=== PATIENT | female | born 1945 | race Caucasian/White ===

== ENCOUNTER 2018-08-04 16:46 | Emergency (ER) | payer MEDICARE, MEDICAID ==
[2018-08-04 16:47] VITALS: BMI 24.4
--- NOTE | 2018-08-04 18:38 | ED PDOC ---
HPI: Abdomen Time Seen by Provider: 08/04/18 17:43 Chief Complaint (Nursing): Abdominal Pain Chief Complaint (Provider): Abdominal Pain History Per: Family (sister and granddaughter) History/Exam Limitations: language barrier (deaf and mute as baseline. nonverbal. does not use sign language) Onset/Duration Of Symptoms: Days (x2) Current Symptoms Are (Timing): Still Present Additional Complaint(s): 73 year old female, deaf and mute at with pmHx of colitis, gallstones, diverticulitis, and arthritis, arrives to ED with her sister and granddaughter for an evaluation of abdominal pain associated with distention and constipation for 2 days. No reports of vomiting, abdominal surgery, urinary complaints, or change in appetite. Patient's sister notes that patient had minimal bowel movement earlier today and recently treated for UTI 2 weeks ago. PCP: Dr. Jeremiah Calhoun Past Medical History Reviewed: Historical Data, Nursing Documentation, Vital Signs Vital Signs: Last Vital Signs Temp 98.7 F 08/04/18 16:48 Pulse 100 H 08/04/18 16:48 Resp 16 08/04/18 16:48 BP 182/89 H 08/04/18 16:48 Pulse Ox 98 08/04/18 16:48 - Medical History PMH: Arthritis, Diverticulitis, HTN, Hyperlipidemia, Kidney Stones, Seizures (LAST SEIZED 1994 NOT ON MEDS SINCE) Denies: Chronic Kidney Disease - Surgical History Surgical History: No Surg Hx - Family History Family History: States: Unknown Family Hx - Home Medications Home Medications: Ambulatory Orders Medication Instructions Recorded Calcium [Calcium 500] 500 mg PO DAILY 01/06/15 Cyanocobalamin [Vitamin B12] 100 mcg PO DAILY 01/06/15 Ergocalciferol (Vitamin D2) 50,000 iu PO QWK 01/06/15 [Vitamin D] Fenofibrate Nanocrystallized 48 mg PO DAILY 01/06/15 [Fenofibrate] Simvastatin 20 mg PO DAILY 01/06/15 Polyethylene Glycol 3350 [Miralax] 17 gm PO DAILY PRN #5 packet 08/04/18 - Allergies Allergies/Adverse Reactions: Allergies Allergy/AdvReac Type Severity Reaction Status Date / Time Penicillins Allergy RASH Verified 08/04/18 16:48 Review of Systems ROS Statement: Except As Marked, All Systems Reviewed And Found Negative Gastrointestinal: Positive for: Abdominal Pain (with distention), Constipation. Negative for: Vomiting, Other (decreased appetite) Genitourinary Female: Negative for: Dysuria, Frequency, Incontinence, Hematuria Physical Exam - Reviewed Nursing Documentation Reviewed: Yes Vital Signs Reviewed: Yes - Physical Exam Appears: Positive for: No Acute Distress Head Exam: Positive for: ATRAUMATIC, NORMAL INSPECTION, NORMOCEPHALIC Skin: Positive for: Normal Color Eye Exam: Positive for: Normal appearance, EOMI, PERRL ENT: Positive for: Normal ENT Inspection. Negative for: Pharyngeal Erythema Neck: Positive for: Normal, Supple Cardiovascular/Chest: Positive for: Regular Rate, Rhythm, Chest Non Tender Respiratory: Positive for: Normal Breath Sounds. Negative for: Respiratory Distress Gastrointestinal/Abdominal: Positive for: Soft, Tenderness (LLQ; epigastric), Distended Back: Positive for: Normal Inspection. Negative for: L CVA Tenderness, R CVA Tenderness Extremity: Positive for: Normal ROM (upper/lower) Neurologic/Psych: Positive for: Alert, Oriented, Other (nonverbal as baseline). Negative for: Motor/Sensory Deficits - Laboratory Results Result Diagrams: 08/04/18 18:30 08/04/18 18:30 - ECG O2 Sat by Pulse Oximetry: 98 (RA) Pulse Ox Interpretation: Normal - Progress Re-evaluation Time: 23:38 Condition: Re-examined, Improved Medical Decision Making Medical Decision Making: Initial Impression: Abdominal pain; constipation Differential diagnosis: aortic dissection R/O SBO or gallbladder disease or acute cholecystitis Initial Plan: * CT ABD/pelvis * Labs Time: 2255 --CT ABD/pelvis FINDINGS: LUNG BASES: The heart is mildly enlarged as visualized. Lung bases appear clear. LIVER: Mild diffuse fatty infiltration of liver. GALLBLADDER AND BILE DUCTS: The gallbladder appears within normal limits. No radioopaque gallstones are seen. No biliary ductal dilatation is evident. PANCREAS: Unremarkable. SPLEEN: Unremarkable. ADRENAL GLANDS: Unremarkable. KIDNEYS, URETERS, AND BLADDER: The bladder is moderately distended. Kidneys appear unremarkable. No hydroureter. STOMACH AND BOWEL: There is fecal impaction at the rectum, measuring 6.7 x 7.5 cm at series 2, image 72. The colon diffusely demonstrates constipation. No evidence for small bowel obstruction. APPENDIX: No evidence of acute appendicitis on CT examination. PERITONEUM: No abdominal or retroperitoneal lymphadenopathy. No pneumoperitoneum or ascites. LYMPH NODES: No lymphadenopathy is evident. REPRODUCTIVE: The uterus is atrophic. VASCULATURE: Abdominal aorta and branches demonstrate mild to moderate atherosclerotic calcification. BONES: Moderate multilevel degenerative spine changes are present. IMPRESSION: 1. The heart is mildly enlarged as visualized. 2. Mild diffuse fatty infiltration of liver. 3. The bladder is moderately distended. 4. There is fecal impaction at the rectum, measuring 6.7 x 7.5 cm at series 2, image 72. 5. The colon diffusely demonstrates constipation. 6. Additional and incidental findings as described, please see comments. Scribe Attestation: Documented by Ynes Russo, acting as a scribe for Clifford Bautista MD. Provider Scribe Attestation: All medical record entries made by the Scribe were at my direction and personally dictated by me. I have reviewed the chart and agree that the record accurately reflects my personal performance of the history, physical exam, medical decision making, and the department course for this patient. I have also personally directed, reviewed, and agree with the discharge instructions and disposition. Disposition - Clinical Impression Clinical Impression: Abdominal pain, Constipation - Patient ED Disposition Is Patient to be Admitted: No Doctor Will See Patient In The: Office Counseled Patient/Family Regarding: Studies Performed, Diagnosis, Need For Followup - Disposition Referrals: Jeremiah Calhoun MD [Family Provider] - Disposition: Routine/Home Disposition Time: 23:39 Condition: GOOD Additional Instructions: RUY SHAIKH, thank you for letting us take care of you today. Your provider was Clifford Bautista MD and you were treated for ABD PAIN. The emergency medical care you received today was directed at your acute symptoms. If you were prescribed any medication, please fill it and take as directed. It may take several days for your symptoms to resolve. Return to the Emergency Department if your symptoms worsen, do not improve, or if you have any other problems. Please contact your doctor or call one of the physicians/clinics you have been referred to that are listed on the Patient Visit Information form that is included in your discharge packet. Bring any paperwork you were given at discharge with you along with any medications you are taking to your follow up visit. Our treatment cannot replace ongoing medical care by a primary care provider outside of the emergency department. Thank you for allowing the [email or web address] team to be part of your care today. If you had an X-Ray or CT scan: A Radiologist will review the ED reading if any change in treatment is needed we will contact you. If you had a blood, urine, or wound culture: It will take several days for the results, if any change in treatment is needed we will contact you. If you had an STI test: It will take 48 hours for the results. Please call after 1 week if you have not heard back. Prescriptions: Polyethylene Glycol 3350 [Miralax] 17 gm PO DAILY PRN #5 packet PRN Reason: Constipation Instructions: Constipation in Adults Forms: [employer] (Chinese) Print Language: HONDURAN
[2018-08-04 18:46] LABS: BASO % 0.4 % (0.0-2.0); EOS % 0.1 % (0.0-4.0); HEMOGLOBIN 13.1 g/dL (12.0-16.0); LYMPH # 1.2 K/uL (1.0-4.3); LYMPH % 11.3 % (20.0-40.0); MEAN CELL VOLUME 88.7 fl (81.0-99.0); MEAN CORPUSCULAR HEMOGLOBIN 30.3 pg (27.0-31.0); MEAN CORPUSCULAR HGB CONC 34.1 g/dL (33.0-37.0); MEAN PLATELET VOLUME 8.1 fl (7.2-11.7); MONO # 0.4 K/uL (0.0-0.8); NEUT # 8.7 K/uL (1.8-7.0); NEUT % 84.2 % (50.0-75.0); RBC 4.34 Mil/uL (3.80-5.20); RED CELL DISTRIBUTION WIDTH 14.2 % (11.5-14.5); WHITE BLOOD COUNT 10.3 K/uL (4.8-10.8)
[2018-08-04 19:04] LABS: BLOOD UREA NITROGEN 14 mg/dl (7-17); CALCIUM 9.2 mg/dL (8.4-10.2); GFR NON-AFRICAN AMERICAN > 60; LIPASE 178 U/L (23-300)
[2018-08-04 19:12] LABS: ALB/GLOB RATIO 1.1 (1.0-2.1); ALBUMIN 4.4 g/dL (3.5-5.0); ALT/SGPT 14 U/L (9-52); AST/SGOT 40 U/L (14-36)
[2018-08-04] MEDS ORDERED: Iohexol 300 100 ML IJ ONE (21:31)
[2018-08-04] MEDS ORDERED: Sodium Chloride 0.9% 50 ML IV ONE (21:31)
[2018-08-04] MEDS ORDERED: POLYETHYLENE GLYCOL 3350 17 GM/Dose PACKET PO STA (23:39)
[2018-08-04 23:47] VITALS: RESP 18
[2018-08-05 00:06] VITALS: BP 132/74; PULSE 80; TEMP 98.5; O2SAT 99
--- NOTE | 2018-08-05 08:38 | CT ---
Date of service: 08/04/2018 PROCEDURE: CT Abdomen and Pelvis with contrast HISTORY: abdominal pain COMPARISON: None. TECHNIQUE: Contrast dose: Radiation dose: Total exam DLP = 278.54 mGy-cm. This CT exam was performed using one or more of the following dose reduction techniques: Automated exposure control, adjustment of the mA and/or kV according to patient size, and/or use of iterative reconstruction technique. FINDINGS: LOWER THORAX: Cardiomegaly. LIVER: Unremarkable. No gross lesion or ductal dilatation. GALLBLADDER AND BILE DUCTS: Unremarkable. PANCREAS: Unremarkable. No gross lesion or ductal dilatation. SPLEEN: Unremarkable. ADRENALS: Unremarkable. No mass. KIDNEYS AND URETERS: Unremarkable. No hydronephrosis. No solid mass. VASCULATURE: Unremarkable. No aortic aneurysm. No aortic atherosclerotic calcification or mural plaque present. BOWEL: Fecal impaction. No obstruction. No gross mural thickening. APPENDIX: Normal appendix. PERITONEUM: Unremarkable. No free fluid. No free air. LYMPH NODES: Unremarkable. No enlarged lymph nodes. BLADDER: Unremarkable. REPRODUCTIVE: Unremarkable. BONES: No acute fracture. OTHER FINDINGS: Small umbilical hernia. IMPRESSION: Fecal impaction. Small periumbilical hernia.
== END 2018-08-05 00:13 | disposition home or self-care (01) ==
LOC: H.ER 16:46
DX: R10.9 Unspecified abdominal pain (principal); K59.00 Constipation, unspecified; E78.5 Hyperlipidemia, unspecified; I10 Essential (primary) hypertension; Z79.899 Other long term (current) drug therapy; Z88.0 Allergy status to penicillin; K76.0 Fatty (change of) liver, not elsewhere classified; K56.41 Fecal impaction
CPT/HCPCS: 74177; 80053; 83690; 85025; 99284; Q9967